=== PATIENT | male | born 1965 | race Caucasian/White ===

== ENCOUNTER 2018-04-22 09:36 | Day surgery (SDC) | payer OTHER ==
[2018-04-22] MEDS ORDERED: FENTAnyl 50 MCG/ML VIAL (11:11)
[2018-04-22] MEDS ORDERED: MIDAZOLAM 1 MG/ML 2 ML INJ (11:11)
[2018-04-22] MEDS ORDERED: NEOSTIGMINE 3 MG/3 ML SYRINGE (11:11)
[2018-04-22] MEDS ORDERED: GLYCOPYRROLATE 0.4 MG INJ (11:11)
[2018-04-22] MEDS ORDERED: CEFAZOLIN 1 GM INJ (11:11)
[2018-04-22] MEDS ORDERED: ONDANSETRON 4 MG INJ (11:11)
[2018-04-22] MEDS ORDERED: PROPOFOL 20 ML (11:11)
[2018-04-22] MEDS ORDERED: DEXAMETHASONE 4 MG/ML 5 ML INJ (11:11)
[2018-04-22] MEDS ORDERED: ROCURONIUM 50 MG INJ (11:11)
[2018-04-22] MEDS ORDERED: ROPIVACAINE 0.5 % 30 ML VIAL ×2 (11:38→16:28)
[2018-04-22] MEDS ORDERED: LABETALOL HCL 20MG INJ IV (12:30)
[2018-04-22] MEDS ORDERED: MIDAZOLAM 1 MG/ML 2 ML INJ IV (12:30)
[2018-04-22] MEDS ORDERED: EPHEDrine SULFATE 50 MG/5 ML SYG IV (12:30)
[2018-04-22] MEDS ORDERED: TRIMETHOBENZAMIDE 100 MG/ML VIAL IM (12:30)
[2018-04-22] MEDS ORDERED: IPRATROPIUM (NEB) 0.5 MG/2.5 ML AMP HHN (12:30)
[2018-04-22] MEDS ORDERED: FENTAnyl 50 MCG/ML VIAL IV ×2 (12:30)
[2018-04-22] MEDS ORDERED: hydrALAzine 20 MG INJ IV (12:30)
[2018-04-22] MEDS ORDERED: ALBUTEROL 0.083% (NEB) 2.5 MG/3 ML AMP HHN (12:30)
[2018-04-22] MEDS ORDERED: DIPHENHYDRAMINE 50 MG INJ IV (12:30)
[2018-04-22] MEDS ORDERED: HYDROmorphONE 1 MG/5 ML IV SYRINGE IV ×3 (12:30)
[2018-04-22] MEDS ORDERED: EPINEPHrine 1 MG/ML 30 ML INJ ZFS (13:00)
[2018-04-22] MEDS: POLYMYXIN/BACITRACIN 1L IRRIG IRR (16:00)
[2018-04-22] MEDS: POVIDONE IODINE 10% 28.4 GM OINT (16:00)
[2018-04-22] MEDS ORDERED: SUGAMMADEX SODIUM 200 MG/2 ML VIAL IV (16:56)
[2018-04-22] MEDS ORDERED: SOD CHLORIDE 0.9% 1,000 ML IV (17:00)
[2018-04-22] MEDS ORDERED: ONDANSETRON 4 MG INJ IV (17:00)
[2018-04-22] MEDS ORDERED: OXYCODONE/ACETAMINOPHEN (5/325) TAB PO ×2 (17:00)
[2018-04-22] MEDS ORDERED: morphine 2 MG INJ IV (17:00)
[2018-04-22] MEDS: FENTAnyl 50 MCG/ML VIAL IV ×2 (17:23→17:41)
[2018-04-22] MEDS: MEPERIDINE 25 MG INJ IV (17:59)
[2018-04-22] MEDS: ONDANSETRON 4 MG INJ IV (17:59)
== END 2018-04-22 18:53 | disposition home or self-care (01) ==
LOC: SDS 09:36
DX: M25.811 Other specified joint disorders, right shoulder (principal); M94.211 Chondromalacia, right shoulder; M75.101 Unspecified rotator cuff tear or rupture of right shoulder, not specified as traumatic; S46.211D Strain of muscle, fascia and tendon of other parts of biceps, right arm, subsequent encounter; X58.XXXD Exposure to other specified factors, subsequent encounter
CPT/HCPCS: 29823; 88304